=== PATIENT | female | born 1980 | race Caucasian/White ===

== ENCOUNTER 2019-11-25 00:56 | Emergency (ER) | payer OTHER ==
[~2019-11-25] VITALS: Ht 172.7 cm; Wt 73.0 kg
--- NOTE | 2019-11-25 01:15 | PHYS DOC ---
General Adult EDM: Chief Complaint: ABDOMINAL PAIN HPI: HPI: Patient is a 39 year old female with no reported medical history and has had a tubal ligation, presents secondary to complaint of right flank pain on the lower aspect of her back that started approximately 30 minutes prior to arrival and is constant but waxes and wanes in severity. Pain is moderate to severe. She denies dysuria or hematuria, fever or chills. No medications taken prior to arrival. There are no exacerbating or alleviating factors. No history of ureterolithiasis. No nausea or vomiting or diarrhea. Review of Systems: Review of Systems: All other systems negative except as documented in HPI Heart Score: Risk Factors: Risk Factors: DM, Current or recent (<one month) smoker, HTN, HLP, family history of CAD, obesity. Risk Scores: Score 0 - 3: 2.5% MACE over next 6 weeks - Discharge Home Score 4 - 6: 20.3% MACE over next 6 weeks - Admit for Clinical Observation Score 7 - 10: 72.7% MACE over next 6 weeks - Early Invasive Strategies Physical Exam: PE: Constitutional: Well developed, well nourished, uncomfortable, nontoxic appearance. HENT: Normocephalic, atraumatic, bilateral external ears normal, oropharynx moist, no oral exudates, nose normal. [] Eyes: PERRLA, EOMI, conjunctiva normal, no discharge. [] Neck: Normal range of motion, no tenderness, supple, no stridor. [] Cardiovascular:Heart rate regular rhythm, no murmur [] Lungs & Thorax: Bilateral breath sounds clear to auscultation [] Abdomen: Bowel sounds normal, soft, no tenderness, no masses, no pulsatile masses. [] Skin: Warm, dry, no erythema, no rash. [] Back: No tenderness, no CVA tenderness. [] Extremities: No tenderness, no cyanosis, no clubbing, ROM intact, no edema. [] Neurologic: Alert and oriented X 3, normal motor function, normal sensory function, no focal deficits noted. [] Psychologic: Affect normal, judgement normal, mood normal. [] EKG: EKG: [] Radiology/Procedures: Radiology/Procedures: EXAM: CT ABDOMEN/PELVIS WITH CONTRAST. HISTORY: Right flank and lower abdominal pain. Leukocytosis. TECHNIQUE: Computed tomography of the abdomen and pelvis was performed after the intravenous administration of iodinated contrast. One or more of the following individualized dose reduction techniques were utilized for this examination: 1. Automated exposure control. 2. Adjustment of the mA and/or kV according to patient size. 3. Use of iterative reconstruction technique. COMPARISON: None. FINDINGS: Lung windows through the visualized portions of the bases reveal mild atelectasis. Bone windows reveal no suspicious lesions. A right ureterovesical junction calculus measures 2 mm. There is mild right hydronephrosis with perinephric and periureteral stranding. No additional renal or ureteral calculi are seen bilaterally. There are no suspicious renal lesions. Periportal edema may reflect intravenous rehydration. The pancreas, gallbladder, spleen and adrenal glands are unremarkable. There are no pathologically enlarged lymph nodes. Changes of bilateral tubal ligation are noted. The appendix is not inflamed. There is no small bowel obstruction. IMPRESSION: 1. 2 mm right ureterovesical junction calculus with mild proximal obstructive findings. Urothelial and periureteral stranding suggests inflammation. Correlate to exclude ascending urinary tract infection. 2. Periportal edema may reflect only intravenous rehydration. Correlate to exclude hepatic inflammation.[] Course & Med Decision Making: Course & Med Decision Making 0114: Patient is seen for right flank pain. Will start with labs and urinalysis to evaluate for possible ureterolithiasis versus intra-abdominal pathology. Ultimately will likely need to get a CT scan for further evaluation. Fentanyl and IV fluids for comfort 0351: Patient's work-up reveals a small right ureteral stone. There is some inflammatory changes I will start her on antibiotics prophylactically and also provide Flomax. Patient is instructed to follow-up with her primary care physician for ongoing symptoms and return to the ER for fever greater than 101, uncontrolled pain, inability to urinate. Dragon Disclaimer: Dragon Disclaimer: This electronic medical record was generated, in whole or in part, using a voice recognition dictation system. Departure Departure Impression: Primary Impression: Ureterolithiasis Disposition: 01 HOME, SELF-CARE Condition: STABLE Patient Instructions: Kidney Stones Additional Instructions: Please follow-up with your doctor for worsening symptoms or return to the ER for temperature greater than 101, uncontrolled pain, inability to void. If your symptoms persist for greater than 5 to 7 days you will need to follow-up with urologist. Scripts Hydrocodone/Apap 5-325 (NORCO 5-325 TABLET) 1 Each Tablet 1 TAB PO PRN Q6HRS PRN for PAIN, #15 TAB 0 Refills Prov: AVELINA SILVA DO 11/25/19 Ibuprofen (IBUPROFEN) 800 Mg Tablet 800 MG PO PRN Q8HRS PRN for INFLAMMATION, #20 TAB Prov: AVELINA SILVA DO 11/25/19 Sulfamethoxazole/Trimethoprim (BACTRIM DS TABLET) 1 Each Tablet 1 TAB PO BID for infection, #14 TAB Prov: AVELINA SILVA DO 11/25/19 Tamsulosin Hcl (FLOMAX) 0.4 Mg Cap.er.24h 1 CAP PO DAILY, #14 CAP 0 Refills Prov: AVELINA SILVA DO 11/25/19 AVELINA SILVA DO Nov 25, 2019 01:15
[2019-11-25 01:26] LABS: BILIRUBIN,URINE NEGATIVE (NEG); CLARITY,URINE TURBID; COLOR,URINE YELLOW; NITRITE,URINE NEGATIVE (NEG); PROTEIN,URINE NEGATIVE (NEG-TRACE)
[2019-11-25 01:28] LABS: BASO # 0.1 x10^3/uL (0.0-0.2); BASO % 1 % (0-3); EOS # 0.4 x10^3/uL (0.0-0.7); EOS % 3 % (0-3); HEMATOCRIT 37.9 % (36.0-47.0); LYMPH # 2.4 x10^3/uL (1.0-4.8); LYMPH % 20 % (24-48); MEAN CORPUSCULAR HEMOGLOBIN 30 pg (25-35); MEAN CORPUSCULAR HGB CONC 34 g/dL (31-37); MEAN CORPUSCULAR VOLUME 86 fL (79-100); MONO # 0.9 x10^3/uL (0.0-1.1); MONO % 7 % (0-9); NEUT # 8.4 x10^3/uL (1.8-7.7); NEUT % 69 % (31-73); PLATELET COUNT 366 x10^3/uL (140-400); RED BLOOD COUNT 4.41 x10^6/uL (3.50-5.40); RED CELL DISTRIBUTION WIDTH 14.3 % (11.5-14.5); WHITE BLOOD COUNT 12.2 x10^3/uL (4.0-11.0)
[2019-11-25 01:33] LABS: BACTERIA,URINE 0 /HPF (0-FEW); RBC,URINE RARE /HPF (0-2); SQUAMOUS EPITHELIAL CELL,UR MOD /LPF; WBC,URINE RARE /HPF (0-4)
[2019-11-25 01:34] LABS: AMORPHOUS SEDIMENT,UR PRESENT /HPF; U PREG PATIENT NEGATIVE (NEG)
[2019-11-25 01:36] LABS: CREATININE 0.8 mg/dL (0.6-1.0); GFR 79.4; POTASSIUM 3.4 mmol/L (3.5-5.1)
[2019-11-25 01:41] LABS: ALBUMIN 3.9 g/dL (3.4-5.0); ALBUMIN/GLOBULIN RATIO 1.2 (1.0-1.7); TOTAL BILIRUBIN 0.4 mg/dL (0.2-1.0); TOTAL PROTEIN 7.2 g/dL (6.4-8.2)
[2019-11-25] MEDS ORDERED: fentaNYL PF VIAL 100 MCG/2 ML VIAL IVP ONE (02:00)
[2019-11-25] MEDS ORDERED: IV NORMAL SALINE 1000ML BAG 1,000 ML IV ONE (02:00)
[2019-11-25] MEDS ORDERED: CONTRAST GIVEN. MC PRN (02:30)
[2019-11-25] MEDS ORDERED: IOHEXOL 300 MG/ML 100ML VIAL. IV ONE (02:30)
--- NOTE | 2019-11-25 03:35 | RAD ---
EXAM: CT ABDOMEN/PELVIS WITH CONTRAST. HISTORY: Right flank and lower abdominal pain. Leukocytosis. TECHNIQUE: Computed tomography of the abdomen and pelvis was performed after the intravenous administration of iodinated contrast. One or more of the following individualized dose reduction techniques were utilized for this examination: 1. Automated exposure control. 2. Adjustment of the mA and/or kV according to patient size. 3. Use of iterative reconstruction technique. COMPARISON: None. FINDINGS: Lung windows through the visualized portions of the bases reveal mild atelectasis. Bone windows reveal no suspicious lesions. A right ureterovesical junction calculus measures 2 mm. There is mild right hydronephrosis with perinephric and periureteral stranding. No additional renal or ureteral calculi are seen bilaterally. There are no suspicious renal lesions. Periportal edema may reflect intravenous rehydration. The pancreas, gallbladder, spleen and adrenal glands are unremarkable. There are no pathologically enlarged lymph nodes. Changes of bilateral tubal ligation are noted. The appendix is not inflamed. There is no small bowel obstruction. IMPRESSION: 1. 2 mm right ureterovesical junction calculus with mild proximal obstructive findings. Urothelial and periureteral stranding suggests inflammation. Correlate to exclude ascending urinary tract infection. 2. Periportal edema may reflect only intravenous rehydration. Correlate to exclude hepatic inflammation. Electronically signed by: Nancy Lopez MD (11/25/2019 3:32 AM) [facility]
[2019-11-25 03:42] VITALS: BP 110/69
[2019-11-25] MEDS ORDERED: SULF1TAB24 PO (03:55)
[2019-11-25] MEDS ORDERED: TAMS0.4C97 PO (03:55)
[2019-11-25] MEDS ORDERED: IBUP-1060 PO (03:55)
[2019-11-25] MEDS ORDERED: HYDR-3164 PO (03:55)
[2019-11-25] MEDS ORDERED: SMZ/TMP 800/160MG TABLET. PO ONE (04:30)
[2019-11-25] MEDS ORDERED: TAMSULOSIN 0.4 MG CAP.ER.24H. PO ONE (04:30)
[2019-11-25] MEDS ORDERED: IBUPROFEN 400 MG TABLET. PO ONE (04:30)
== END 2019-11-25 04:20 | disposition home or self-care (01) ==
LOC: ER 00:56
DX: N13.2 Hydronephrosis with renal and ureteral calculous obstruction (principal); D72.829 Elevated white blood cell count, unspecified; Z98.51 Tubal ligation status
CPT/HCPCS: 36415; 74177; 80053; 81001; 81025; 83690; 85025; 96374; 99285; J3010; J7030; Q9967